=== PATIENT | male | born 1940 | race Caucasian/White ===

== ENCOUNTER → 2018-11-04 | Outpatient (CLI) | payer MEDICARE ==
[~2018-11-04] MED LIST: ASPI81CH; BUDE10.22; Nitrostat0.4 MG; Prinivil10 MG
== END | disposition home or self-care (01) ==
LOC: LAB SHORT 14:42 → PLD 14:42
DX: D48.5 Neoplasm of uncertain behavior of skin (principal)
CPT/HCPCS: 88305

== ENCOUNTER → 2019-05-12 | Outpatient (CLI) | payer MEDICARE ==
[~2019-05-12] MED LIST changes: -ASPI81CH; +ASPI81CH PO; -BUDE10.22; +BUDE10.22 PO; +LOSARTAN POTASS50 MG PO; -Nitrostat0.4 MG; +Nitrostat0.4 MG PO; -Prinivil10 MG; +Prinivil10 MG PO; +Simvastatin10 MG PO; +XARELTO20 MG PO
== END | disposition home or self-care (01) ==
LOC: LAB SHORT 07:37 → PLD 07:37
DX: D48.5 Neoplasm of uncertain behavior of skin (principal)
CPT/HCPCS: 88305

== ENCOUNTER 2019-05-13 21:29 | Inpatient (IN) | payer MEDICARE ==
[~2019-05-13] VITALS: Ht 175.3 cm; Wt 94.0 kg
[~2019-05-13 21:29] MED LIST changes: -LOSARTAN POTASS50 MG PO; -Simvastatin10 MG PO; -XARELTO20 MG PO
[2019-05-13 22:01] LABS: BASOPHILS ABSOLUTE AUTO 0.05 K/mm3 (0.00-0.23); BASOPHILS PERCENT AUTO 1 % (0-2); EOSINOPHILS ABSOLUTE AUTO 0.29 K/mm3 (0.00-0.68); EOSINOPHILS PERCENT AUTO 6 % (0-6); Hematocrit 37.3 % (37.0-53.0); IMMATURE GRAN ABSOLUTE AUTO 0.02 K/mm3 (0.00-0.10); IMMATURE GRAN PERCENT AUTO 0 % (0-1); LYMPHOCYTES ABSOLUTE AUTO 1.18 K/mm3 (0.84-5.20); LYMPHOCYTES PERCENT AUTO 24 % (21-46); MONOCYTES ABSOLUTE AUTO 0.78 K/mm3 (0.16-1.47); MONOCYTES PERCENT AUTO 16 % (4-13); Mean Corpuscular HGB 30.6 pg (26.0-34.0); Mean Corpuscular HGB Conc 32.2 g/dL (31.5-36.5); Mean Corpuscular Volume 95 fL (80-100); Mean Platelet Volume 9.8 fL (9.1-12.4); NEUTROPHILS ABSOLUTE AUTO 2.63 K/mm3 (1.96-9.15); NEUTROPHILS PERCENT AUTO 53 % (41-73); Platelet Count 216 K/mm3 (150-400); RDW Standard Deviation 45.1 fL (35.1-46.3); Red Blood Cell Count 3.92 M/mm3 (4.30-5.90); White Blood Cell Count 4.95 K/mm3 (4.00-11.30)
[2019-05-13 22:17] LABS: Alanine Aminotransfer (ALT/SGP 48 U/L (12-78); Albumin, Blood 3.8 g/dL (3.4-5.0); Albumin/Globulin Ratio 1.2 (0.8-1.8); Alk Phos 102 U/L (50-136); Anion Gap 5 mmol/L (6-16); Aspartate Aminotrans (AST/SGOT 32 U/L (12-37); Bilirubin, Total 0.7 mg/dL (0.1-1.0); Blood Urea Nitrogen 19 mg/dL (8-24); Bun/Creatinine Ratio 13.2 (12.0-20.0); CO2, Blood 27 mmol/L (21-32); Calcium, Blood 9.1 mg/dL (8.5-10.1); Chloride, Blood 100 mmol/L (98-108); Creatinine, Blood 1.44 mg/dL (0.60-1.20); Globulin, Blood 3.1 g/dL (2.2-4.0); Glomerular Filtration Rate 50 (60-); Glucose, Blood 102 mg/dL (70-99); Potassium, Blood 4.7 mmol/L (3.5-5.5); Sodium, Blood 132 mmol/L (136-145); Total Protein, Blood 6.9 g/dL (6.4-8.2); Troponin I <0.015 ng/mL (0.000-0.040)
[2019-05-13 23:59] LABS: Free Thyroxine 0.97 ng/dL (0.70-1.60)
[2019-05-14 00:22] LABS: Troponin I <0.015 ng/mL (0.000-0.040)
--- NOTE | 2019-05-14 03:17 | NUR ---
PATIENT IS A NEW ADMIT FROM THE ED. REPORTED CHEST PAIN PRIOR TO ARRIVING TO MEDICAL FLOOR. ED RN CALLED TO REPORT SHE GAVE IV TORADOL 15 MG X ONE 15 MINUTES BEFORE BRINGING TO MEDICAL FLOOR. PATIENT NOW REPORTS CHEST PAIN 1-2 OUT OF TEN. DENIES SOB AND N/V. DR CUELLAR IN ROOM FOR ASSESSMENT JUST AFTER PATIENT ARRIVED. PATIENT ORIENTED TO ROOM AND CALL LIGHT SYSTEM. REPORTS TIRED AND WANTS TO SLEEP. WILL CONTINUE TO MONITOR.
[2019-05-14] MEDS ORDERED: LOSARTAN POTASS50 MG PO (03:34)
[2019-05-14] MEDS ORDERED: Simvastatin10 MG PO (03:34)
--- NOTE | 2019-05-14 04:22 | NUR ---
PATIENT DENIES CHEST PAIN, SOB, AND N/V. TELEMETRY PLACED AND TECH REPORTS A-FIB 45. REPORTED HAD FLU VACCINE EARLIER IN WEEK SO REFUSED. CALL LIGHT IN REACH. WILL CONTINUE TO MONITOR.
--- NOTE | 2019-05-14 04:49 | NUR ---
TAX SERVICES PROFESSIONAL REPORTS 03.5 SECOND PAUSE. A-FIB RUNNING IN THE 40'S. PATIENT SLEEPING AND SNORING AT THIS TIME. WILL CONTINUE TO MONITOR.
[2019-05-14 04:53] LABS: Hematocrit 34.1 % (37.0-53.0); Mean Corpuscular HGB 30.1 pg (26.0-34.0); Mean Corpuscular HGB Conc 32.3 g/dL (31.5-36.5); Mean Corpuscular Volume 93 fL (80-100); Mean Platelet Volume 9.7 fL (9.1-12.4); Platelet Count 190 K/mm3 (150-400); RDW Coefficient Variation 13.1 % (11.7-14.2); RDW Standard Deviation 44.5 fL (35.1-46.3); Red Blood Cell Count 3.66 M/mm3 (4.30-5.90); White Blood Cell Count 3.93 K/mm3 (4.00-11.30)
[2019-05-14 05:20] LABS: Alanine Aminotransfer (ALT/SGP 40 U/L (12-78); Albumin, Blood 3.4 g/dL (3.4-5.0); Albumin/Globulin Ratio 1.3 (0.8-1.8); Alk Phos 79 U/L (50-136); Anion Gap 7 mmol/L (6-16); Aspartate Aminotrans (AST/SGOT 21 U/L (12-37); Bilirubin, Total 0.6 mg/dL (0.1-1.0); Blood Urea Nitrogen 20 mg/dL (8-24); Bun/Creatinine Ratio 14.1 (12.0-20.0); CO2, Blood 25 mmol/L (21-32); CPK Creatine Kinase 193 U/L (39-308); Calcium, Blood 8.6 mg/dL (8.5-10.1); Chloride, Blood 102 mmol/L (98-108); Creatinine, Blood 1.42 mg/dL (0.60-1.20); Globulin, Blood 2.7 g/dL (2.2-4.0); Glomerular Filtration Rate 51 (60-); Glucose, Blood 91 mg/dL (70-99); Potassium, Blood 4.8 mmol/L (3.5-5.5); Sodium, Blood 134 mmol/L (136-145); Total Protein, Blood 6.1 g/dL (6.4-8.2); Troponin I <0.015 ng/mL (0.000-0.040)
--- NOTE | 2019-05-14 05:50 | NUR ---
HOSPITALIST DR CUELLAR NOTIFIED OF 03.5 SECOND PAUSE ON TELEMETRY PLUS ANOTHER ONE OF 04.2 SECONDS WITH SHORTER ONES EARLIER. HE REPORTS TO CONTINUE TO MONITOR. HE ALSO ORDERED [facility] BLOOD DRAW.
[2019-05-14 05:51] LABS: CPK Creatine Kinase 194 U/L (39-308); Troponin I <0.015 ng/mL (0.000-0.040)
--- NOTE | 2019-05-14 05:59 | NUR ---
SHIFT SUMMARY LIE DETECTOR OPERATOR REPORTED PAUSES OF 03.5 SECONDS AND 04.2 SECONDS RUNNING A-FIB IN THE 40'S (SEE NOTES). HOSPITALIST DR CUELLAR REPORTS TO CONTINUE TO MONIOTR. PATIENT DENIES CHEST PAIN, SOB, AND N/V. AXOX 4 AND SBA TO BR. PIV REMAINS INTACT. ON RA. REPORTS DRINKS 5-6 BEERS/DAY. CIWA ZERO. TROPONINS NEGATIVE. DR CUELLAR ORDERED AT [facility]LO[facility] DRAW...PENDING. PATIENT RECEIVED OXYCODONE AND TORADOL IV IN THE ED BEFORE COMING TO MEDICAL FLOOR AND CHEST PAIN REDUCED TO 1-2 OUT OF TEN. VSS/AFEBRILE. CALL LIGHT IN REACH. BED IN LOWEST POSITION. WILL CONTINUE TO MONITOR UNTIL DAY SHIFT NURSE ASSUMES CARE.
--- NOTE | 2019-05-14 06:37 | NUR ---
ENVIRONMENT COORDINATOR REPORTS A-FIB 35. PATIENT SLEEPING IN ROOM. PATIENT AWAKEN AND ALERT AND ORIENTED. ABLE TO HOLD CONVERSATION. WILL CONTINUE TO MONITOR.
--- NOTE | 2019-05-14 08:34 | NUR ---
CALLED MD NOTIFIED HIM OF PT'S HR IN THE 30'S, WITH PAUSES OF 3.5-4.2 SECONDS OCCURING. HE WANTS PT ON BEDREST. HE ORDERED A CARDIOLOGY CONSULT, WHICH I IMMEDIATELY PHONED IN. CONTACTED MEAT HOSTESS VIA CELL PHONE FOR CONSULT. INFORMED HIM OF FINDINGS. ALL OTHER VS ARE WNL, PT ASYMPTOMATIC. INFORMED CHARGE NURSE OF ALL. AWAITING FURTHER ORDERS.
--- NOTE | 2019-05-14 13:39 | NUR ---
V/STOL LANDING SIGNAL OFFICER ROUNDED STATED TO CALL HIM IF PT SYMPTOMATIC DURING PAUSES IN HR, OR IF PAUSE IS GREATER THAN 5 SECONDS. CARDIAC DIET. DRAW TROPONIN LAB.
--- NOTE | 2019-05-14 17:09 | NUR ---
SHIFT SUMMARY ONLY ONE PAUSE RECORDED SINCE LAST NOTATION, LASTING 2.5 SECONDS. ASYMPTOMATIC. TROPONIN NEGATIVE. PLAN IS TO DC TOMORROW ON BLOOD THINNER. PT DENIES PAIN OR DISCOMFORT. TELEMETRY MONITORING HR - AFIB @ 48 BPM. CARDIOLOGY CONSULT ON BOARD, SEE PREVIOUS NOTE. CIWA'S NEGATIVE SO FAR.
--- NOTE | 2019-05-14 21:47 | NUR ---
RT REPORTS SLEEP STUDY IN PROGRESS
--- NOTE | 2019-05-14 22:01 | NUR ---
CHAIR REPORTS 03.2 SECOND PAUSE. WILL CONTINUE TO MONITOR.
--- NOTE | 2019-05-15 03:17 | NUR ---
SHIFT SUMMARY PATIENT HAD THREE X 03.2 SECOND PAUSES THIS SHIFT. PIV REMAINS INTACT. NETSUITE DEVELOPER REPORTS A-FIB 67. DENIES CHEST PAIN, SOB, AND N/V. RT PLACED PATIENT ON SLEEP STUDY. CIWA SCORE ZERO. VSS/AFEBRILE. AXOX 3 AND SBA TO BR. COOPERATIVE WITH CARE. POSSIBLE DC TODAY. CALL LIGHT IN REACH. BED IN LOWEST POSITION. WILL CONTINUE TO MONITOR UNTIL DAY SHIFT NURSE ASSUMES CARE.
--- NOTE | 2019-05-15 05:03 | NUR ---
SPREADER BOX OPERATOR REPORTS TWO MORE 03.2 SECOND PAUSES AND A FEW THAT WERE LESS. SLEEP STUDY STILL IN PROGRESS.
--- NOTE | 2019-05-15 06:43 | NUR ---
[employer] REPORTED THREE MORE PAUSES OF 03.2 SECONDS IN LAST HOUR.
[2019-05-15] MEDS ORDERED: XARELTO20 MG PO (14:01)
--- NOTE | 2019-05-15 17:52 | NUR ---
SHIFT SUMMARY PT WOKE EASILY DURING SHIFT REPORT. PLEASANT AND CO-OP. PT VERY READY TO BE D/C'D FROM THE START OF DAY SHIFT. PT UP INDEPENDENTLY IN WALKING AROUND AND PACING THE FLOOR WAITING FOR DR TOVAR. PT ADMITTED FOR NEW ONSET OF A-FIB AND TO BE D/C'D ON ANTICOAG. PT ALSO HAVING SOME 2-4 SECOND PAUSES PER TELE MX. CARDIOLOGY ONBOARD; PER REPORT, NOT TO CALL FOR ANY PAUSES LESS THAN 5 SECONDS. PT REMAINED STABLE ALL DAY. 1200 DR TOVAR NOTIFIED OF PT WANTING TO BE D/C'D ALL DAY. DR TOVAR LATER TO AND ABLE TO D/C PT TO HOME. TELE REMOVED AND IV SITE D/C'D. D/C INSTRUCTIONS GIVEN AND MEDS FAXED PER PT REQUEST. PT STARTED ON XARLETO; INFORMATION AND EDU GIVEN. PT WANTED TO WALK OUT WITH FRIEND WHEN D/C'D; DECLINED W/C ASSISTANCE. PER REPORT, PT VERY ACTIVE. PT DID REPORT THAT HE DOES DRINK TOO MUCH AND DAILY. ENCOURAGED PT TO CUT BACK ON ALCOHOL CONSUMPTION FOR HEALTH.
== END 2019-05-15 14:09 | disposition home or self-care (01) | DRG 310 ==
LOC: ER 21:29 → MEDS 21:30 → ER 21:30 → MEDS 21:30
PROVIDERS: Emergency Medicine; Physician Assistant; ADMIT Internal Medicine
DX: I48.0 Paroxysmal atrial fibrillation (principal); I12.9 Hypertensive chronic kidney disease with stage 1 through stage 4 chronic kidney disease, or unspecified chronic kidney disease; N18.3 Chronic kidney disease, stage 3 (moderate); E78.5 Hyperlipidemia, unspecified; G47.33 Obstructive sleep apnea (adult) (pediatric); Z79.82 Long term (current) use of aspirin; Z79.899 Other long term (current) drug therapy; Z87.891 Personal history of nicotine dependence
CPT/HCPCS: 36415; 71046; 80053; 82550; 83735; 83880; 84439; 84443; 84484; 85025; 85027; 93005; 93010; 93306; 94640; 94760; 94762; 96374; 99285-25; J1650; J1885

== ENCOUNTER → 2019-05-20 | Outpatient (CLI) | payer MEDICARE ==
[~2019-05-20] MED LIST changes: +LOSARTAN POTASS50 MG PO; +Simvastatin10 MG PO; +XARELTO20 MG PO
== END ==
LOC: PLD 08:17 → LAB SHORT 08:17
DX: C44.310 Basal cell carcinoma of skin of unspecified parts of face (principal)
CPT/HCPCS: 88305

== ENCOUNTER 2019-06-22 08:36 | Day surgery (SDC) | payer MEDICARE ==
[~2019-06-22] VITALS: Ht 175.3 cm; Wt 91.0 kg
[2019-06-22] MEDS ORDERED: ELIQUIS5 MG PO (08:58)
[2019-06-22] MEDS ORDERED: NIAC500 PO (08:59)
--- NOTE | 2019-06-22 12:10 | NUR ---
ASSUMED CARE OF PT. PT IS ALERT AND ORIENTED, PLEASENT AND COOPERATIVE. PT DENIES PAIN, SOB OR NAUSEA. MONITOR A FIB WITH PACED BEATS, 136/67, SPO2 98% RA. L CHEST PACEMAKER SITE NO SWELLING/HEMATOMA, TELFA AND TEGADERM DRSG INTACT. PT TOOK LUNCH WITHOUT PROBLEM.
--- NOTE | 2019-06-22 14:22 | NUR ---
1400-RECEIVED THIS PT FROM THE GREENHOUSE MANAGER. PT HAD HIS PACEMAKER PLACED TODAY BY DR. LEONG. PT HAS A SINGLE CHAMBER PCAEMAKER. PT IS VENTRICULARLY PACED. UNDERLYING RHYTHM IS AFIB. PT IS ALERT AND ORIENTED. DENIES PAIN AT THIS TIME.
--- NOTE | 2019-06-22 18:08 | NUR ---
SHIFT SUMMARY: PT IS ALERT AND ORIENTED. LEFT CHEST INCISION SITE HAS DRY AND INTACT DRESSING. PT HAS DENIED PAIN. INCISION SITE SLIGHTLY SWOLLEN. AFEBRILE. PT WAS ABLE TO WALK AROUND THE U HALLWAYS. PT HAS BEEN INSTRUCTED TO KEEP THE LEFT ARM CLOSE TO HIS SIDE, NOT RAISE ARMS ABOVE HIS SHOULDER. TREAT THE LEFT ARM LIKE IT'S BROKEN.
--- NOTE | 2019-06-22 20:33 | NUR ---
Assumed care of patient at 1900, patient awake sitting side of bed in no apparent distress pleasantly conversive. all vs wnl, denies pain. surg site left uppr chest with dressing clean w/o drainage, no pain, minimal swelling, no redness. Will continue to monitor
--- NOTE | 2019-06-23 07:00 | NUR ---
SHIFT SUMMARY NO ACUTE CHANGES THIS SHIFT. PATIENT WAS MEDICATED ONCE PER EMAR PER REQUEST, OTHERWISE NO ISSUES. ALL VSS T/O SHIFT. PATIENT IS INDEPENDENT IN ROOM AND COMPLIANT WITH ALL INTERVENTIONS AND INSTRUCTIONS. WILL PASS CARE AND REPORT TO ONCOMING SHIFT AT 070O. PATIENT SITTING SIDE OF BED, CALL LIGHT IN REACH
--- NOTE | 2019-06-23 10:54 | NUR ---
DISCHARGE PT HAS BEEN DOING WELL THIS AM. TOLERATING DIET, LISA WNL, PACED, AMBULATORY. DR FERMIN'S HANDOUT GIVEN AND DISCUSSED. PT DECLINES W/C. AMBULATES OUT TO MEET DAUGHTER.
== END 2019-06-23 11:00 | disposition home or self-care (01) ==
LOC: MHTC 08:36 → PCU 14:17 → MHTC 06-23 11:00
DX: I49.5 Sick sinus syndrome (principal); I44.0 Atrioventricular block, first degree; I45.5 Other specified heart block; I08.3 Combined rheumatic disorders of mitral, aortic and tricuspid valves; I10 Essential (primary) hypertension; E78.5 Hyperlipidemia, unspecified; J44.9 Chronic obstructive pulmonary disease, unspecified; I48.91 Unspecified atrial fibrillation; F10.10 Alcohol abuse, uncomplicated; E66.3 Overweight; Z68.29 Body mass index [BMI] 29.0-29.9, adult; Z87.891 Personal history of nicotine dependence; Z79.01 Long term (current) use of anticoagulants; Z79.899 Other long term (current) drug therapy
CPT/HCPCS: 33207; 71045; 71046; 76937; 94640; 94760; 99152; 99153; A9270; A9270-GY; C1786; C1898; J0690; J1644; J2250; J3010; J7030; J7040

== ENCOUNTER → 2020-05-25 | Outpatient (CLI) | payer MEDICARE ==
[~2020-05-25] MED LIST changes: +ELIQUIS5 MG PO; +NIAC500 PO
== END | disposition home or self-care (01) ==
LOC: LAB SHORT 08:11 → PLD 08:11
DX: L98.8 Other specified disorders of the skin and subcutaneous tissue (principal)
CPT/HCPCS: 88305

== ENCOUNTER → 2021-01-03 | Outpatient (CLI) | payer MEDICARE | LOC: LAB SHORT 14:44 → LAB 14:44 | DX: D48.5 Neoplasm of uncertain behavior of skin (principal); C44.310 Basal cell carcinoma of skin of unspecified parts of face | CPT/HCPCS: 88305 ==

== ENCOUNTER → 2021-04-04 | Outpatient (CLI) | payer MEDICARE | END | disposition home or self-care (01) | LOC: LAB 15:00 → LAB SHORT 15:00 | DX: C44.519 Basal cell carcinoma of skin of other part of trunk (principal) | CPT/HCPCS: 88305 ==

== ENCOUNTER → 2021-12-07 | Outpatient (CLI) | payer MEDICARE | END | disposition home or self-care (01) | LOC: PLD 12:24 → LAB 12:24 → LAB SHORT 12:24 | DX: L98.9 Disorder of the skin and subcutaneous tissue, unspecified (principal) | CPT/HCPCS: 88305; 88312 ==

== ENCOUNTER → 2022-10-08 | Outpatient (CLI) | payer OTHER | END | disposition home or self-care (01) | LOC: PLD 11:17 → LAB SHORT 11:17 | DX: C44.319 Basal cell carcinoma of skin of other parts of face (principal) | CPT/HCPCS: 88305 ==

== ENCOUNTER → 2023-08-26 | Outpatient (CLI) | payer OTHER | LOC: LAB 11:42 → LAB SHORT 11:42 | DX: C44.41 Basal cell carcinoma of skin of scalp and neck (principal) | CPT/HCPCS: 88305 ==